=== PATIENT | male | born 1995 | race Caucasian/White ===

== ENCOUNTER → 2017-05-24 | Outpatient (CLI) | payer BC ==
--- NOTE | 2017-05-24 17:53 | Diagnostic Imaging Report ---
EXAM: Scrotal Ultrasound with Duplex INDICATION: Spermatocele of epididymis. COMPARISON: None TECHNIQUE: Transverse and longitudinal images were obtained of the scrotum with grayscale imaging, color Doppler and spectral waveform analysis. FINDINGS: Right testis: Size: 4.1 x 2.1 x 3.8 cm, normal in size. Echogenicity: Normal Mass/Cysts: None Left testis: Size: 4.4 x 2 x 3.7 cm, normal in size. Echogenicity: Normal Mass/Cysts: None Epididymis: Appearance: Normal in size without increased vascularity. Mass/Cysts: 3.3 x 2.4 x 4 cm left epididymal head cyst/spermatocele. Extratesticular: Masses: None Hydrocele: None Varicocele: None Doppler: Normal arterial flow to both testes and symmetrical flow on color Doppler evaluation is seen. No evidence of testicular torsion. IMPRESSION: 1. No evidence of testicular torsion. 2. 4 cm left epididymal head cyst/spermatocele. Signed by: Dr. Clement Campos MD on 05/24/2017 5:49 PM
== END ==
LOC: US 16:29
PROVIDERS: ATTEND Urology
DX: N43.40 Spermatocele of epididymis, unspecified (principal)
CPT/HCPCS: 76870; 93976

== ENCOUNTER 2021-12-25 22:06 | Emergency (ER) | payer OTHER ==
[~2021-12-25] VITALS: Ht 182.9 cm; Wt 127.5 kg
[2021-12-25] MEDS ORDERED: SILVADENE20 GM TOP (22:40)
[2021-12-25] MEDS ORDERED: CEFDINIR300 MG PO (22:40)
== END 2021-12-25 22:46 | disposition home or self-care (01) ==
LOC: FSED 22:15
DX: T22.211A Burn of second degree of right forearm, initial encounter (principal); X17.XXXA Contact with hot engines, machinery and tools, initial encounter; Y92.89 Other specified places as the place of occurrence of the external cause; K21.9 Gastro-esophageal reflux disease without esophagitis; F17.210 Nicotine dependence, cigarettes, uncomplicated
CPT/HCPCS: 99282